=== PATIENT | female | born 1965 | race Caucasian/White ===

== ENCOUNTER 2016-12-18 11:30 | Emergency (ER) | payer OTHER ==
[~2016-12-18] VITALS: Ht 157.5 cm; Wt 61.2 kg
[~2016-12-18 11:30] MED LIST: ALBU8.5H3 INH; DOCU-144 PO; HYDR25SU23 PR; OMEP20CA16 PO; POLY17PO6 PO; PRED20TA PO
[2016-12-18 11:35] VITALS: Ht 157.5 cm; Wt 61.2 kg
[2016-12-18] MEDS ORDERED: KETOROLAC 30 MG INJ IM STA (11:54)
--- NOTE | 2016-12-18 12:08 | ERD ---
ER Documentation Chief Complaint Date/Time DATE: 12/18/16 TIME: 12:02 Chief Complaint flu like symptoms x 3 days, body aches, cough,chills HPI 51 yo female comes in with cough, congestion runny nose, headache for 3 days. She reports a temperature maximum of 101.7 last night and has been taking guaifenesin, and codeine. Patient reports generalized body aches as well. She denies, chest pain, shortness breath, abdominal pain. Patient also reports that she has had some constipation and associated hemorrhoid pain. No blood in her stools. ROS All systems reviewed and are negative except as per history of present illness. Medications Home Meds Active Scripts Guaifenesin/Codeine Phosphate (CHERATUSSIN AC SYRUP) 118 Ml Liquid, 5 ML PO Q4H Y for COUGH, #118 ML Prov:NURY DOMINGUEZ PA-C 12/18/16 Azithromycin* (Zithromax*) 250 Mg Tablet, 250 MG PO .ZPACK DIRECTED, #6 TAB TAKE 500 MG (2 TABS) THE FIRST DAY THEN 250 MG (1 TAB) DAYS 2-5 Prov:NURY DOMINGUEZ PA-C 12/18/16 Albuterol Sulfate* (Proair HFA*) 8.5 Gm Hfa.aer.ad, 2 PUFF INH Q4, #1 INHALER Prov:NURY DOMINGUEZ PA-C 07/25/16 Prednisone* (Prednisone*) 20 Mg Tab, 40 MG PO DAILY for 4 Days, TAB Prov:NURY DOMINGUEZ PA-C 07/25/16 Omeprazole* (Omeprazole*) 20 Mg Capsule.dr, 20 MG PO DAILY, #30 Prov:EJ MENON NP 06/24/16 Polyethylene Glycol* (Miralax*) 17 Gm Powd.pack, 17 GM PO DAILY, #7 Prov:EJ MENON NP 06/24/16 Docusate Sodium* (Colace*) 100 Mg Capsule, 100 MG PO TID, #30 CAP Prov:EJ MENON NP 06/24/16 Hydrocortisone Acetate (Anusol-Hc) 25 Mg Supp.rect, 1 SUPP W[place] BID Y for HEMORROID PAIN/ITCHING, #24 SUPP.RECT Prov:EJ MENON NP 06/24/16 Allergies Allergies: Coded Allergies: No Known Allergy (Unverified , 11/28/13) PMhx/Soc History of Surgery: No Anesthesia Reaction: No Hx Neurological Disorder: No Hx Respiratory Disorders: No Hx Cardiac Disorders: No Hx Psychiatric Problems: No Hx Miscellaneous Medical Probl: Yes (Gastritis) Hx Alcohol Use: No Hx Substance Use: No Hx Tobacco Use: No Physical Exam Vitals Vital Signs Date Time Temp Pulse Resp B/P Pulse Ox O2 Delivery O2 Flow Rate FiO2 12/18/16 11:35 99.2 99 20 107/53 96 Physical Exam General: [Well-developed, well-nourished. The patient appears in no acute distress.] HEENT: [Head is normocephalic, atraumatic. No scleral icterus. Pupils are equal , round, and reactive. Oral mucous membranes are moist. No pharyngeal erythema. ] Neck: [Supple. Nontender.] Lungs: [Clear to auscultation. Normal air movement.] Heart: [Regular rate and rhythm. S1 and S2 are normal. No murmurs, gallops, or rubs.] Abdomen: [Soft, nontender, nondistended. Bowel sounds are normoactive.] Extremities: [No clubbing or cyanosis. Normal pulses. Moving extremities x 4. No weakness.] Neurologic: [Alert and oriented 3. No focal deficits.] Skin: [Normal turgor. No rash or lesions.] Results 24 hrs Current Medications Medications (Trade) Dose Ordered Sig/Angella Route PRN Reason Start Time Stop Time Status Last Admin Dose Admin Ketorolac Tromethamine (Toradol) 30 mg ONCE STAT IM 12/18/16 11:54 12/18/16 11:56 DC 12/18/16 12:26 PROCEDURE: XR Chest. CLINICAL INDICATION: Cough and fever. TECHNIQUE: Single frontal view. COMPARISON: None. FINDINGS: There is minimal left basilar atelectasis or pneumonia. The lungs are otherwise clear. The heart size is normal. There is no pleural effusion. There is no pneumothorax. IMPRESSION: 1. Minimal left basilar atelectasis or pneumonia. 2. Otherwise normal chest x-ray. RPTAT: QQ .Rik Mahoney MD, MD Date Time Electronically viewed and signed by .Rik Mahoney MD, on 12/18/2016 12:19 Procedures/MDM The patient is a 51-year-old female who comes in with acute bronchitis versus pneumonia. Chest x-ray was read as left basilar atelectasis versus infiltrate, secondary to history of fever and cough patient will be treated.. The patient has a differential diagnosis of a viral upper respiratory infection, bacterial upper respiratory infection, bronchitis, pneumonia, pharyngitis, laryngitis, epiglottitis, croup, pneumonia. Patient has a normal pulmonary examination, clear breath sounds, normal pulse oximetry, with no corrective measures needed at this time. Fluids, rest, antipyretics were encouraged. Departure Diagnosis: Primary Impression: Cough Condition: Good NURY DOMINGUEZ PA-C December 18, 2016 12:08
--- NOTE | 2016-12-18 12:19 | RADRPT ---
PROCEDURE: XR Chest. CLINICAL INDICATION: Cough and fever. TECHNIQUE: Single frontal view. COMPARISON: None. FINDINGS: There is minimal left basilar atelectasis or pneumonia. The lungs are otherwise clear. The heart size is normal. There is no pleural effusion. There is no pneumothorax. IMPRESSION: 1. Minimal left basilar atelectasis or pneumonia. 2. Otherwise normal chest x-ray. RPTAT: QQ .Rik Mahoney MD, MD Date Time Electronically viewed and signed by .Rik Mahoney MD, MD on 12/18/2016 12:19 .R/
[2016-12-18] MEDS ORDERED: AZIT250T94 PO (12:28)
[2016-12-18] MEDS ORDERED: GUAI118L22 PO (12:28)
== END 2016-12-18 13:01 | disposition home or self-care (01) ==
LOC: FTE 11:30
DX: R05 Cough (principal)
CPT/HCPCS: 71010; 96372; J1885; Z7502

== ENCOUNTER 2017-06-12 09:31 | Emergency (ER) | payer OTHER ==
[~2017-06-12] VITALS: Ht 167.6 cm; Wt 89.6 kg
[~2017-06-12 09:31] MED LIST changes: +AZIT250T94 PO; +GUAI118L22 PO
[2017-06-12 09:34] VITALS: Ht 167.6 cm; Wt 89.6 kg
[2017-06-12 10:11] LABS: BASOPHIL # 0.1 10^3/ul (0.0-0.1); BASOPHILS % 0.9 % (0.0-2.0); EOSINOPHILS # 0.2 10^3/ul (0.0-0.5); EOSINOPHILS % 3.1 % (0.0-7.0); HEMATOCRIT 44.1 % (37.0-47.0); HEMOGLOBIN 14.9 g/dl (12.0-16.0); LYMPHOCYTES # 1.7 10^3/ul (0.8-2.9); LYMPHOCYTES % 28.9 % (15.0-51.0); MEAN CORPUSCULAR HEMOGLOBIN 30.2 pg (29.0-33.0); MEAN CORPUSCULAR HGB CONC 33.8 g/dl (32.0-37.0); MEAN CORPUSCULAR VOLUME 89.5 fl (82.0-101.0); MEAN PLATELET VOLUME 10.3 fl (7.4-10.4); MONOCYTE # 0.3 10^3/ul (0.3-0.9); MONOCYTES % 5.3 % (0.0-11.0); NEUTROPHIL # 3.6 10^3/ul (1.6-7.5); NEUTROPHILS % 61.5 % (39.0-77.0); PLATELET COUNT 197 10^3/UL (140-415); RED BLOOD COUNT 4.93 10^6/ul (4.20-5.40); RED CELL DISTRIBUTION WIDTH 12.1 % (11.5-14.5); WHITE BLOOD COUNT 5.9 10^3/ul (4.8-10.8)
[2017-06-12 10:29] LABS: ALANINE AMINOTRANSFERASE 48 IU/L (13-69); ALBUMIN 4.4 g/dl (3.3-4.9); ALBUMIN/GLOBULIN RATIO 1.41; ALKALINE PHOSPHATASE 105 IU/L (42-121); ANION GAP 15 (8-16); ASPARTATE AMINO TRANSFERASE 26 IU/L (15-46); BILIRUBIN,INDIRECT 0.4 mg/dl (0-1.1); BILIRUBIN,TOTAL 0.4 mg/dl (0.2-1.3); BLOOD UREA NITROGEN 12 mg/dl (7-20); CALCIUM 9.2 mg/dl (8.4-10.2); CARBON DIOXIDE 27 mmol/L (21-31); CHLORIDE 107 mmol/L (97-110); CREATININE 0.72 mg/dl (0.44-1.00); GLUCOSE 82 mg/dl (70-220); SODIUM 145 mmol/L (135-144); TOTAL PROTEIN 7.5 g/dl (6.1-8.1)
[2017-06-12] MEDS ORDERED: IBUPROFEN 600 MG TAB PO ONE (10:30)
[2017-06-12 10:40] LABS: C-REACTIVE PROTEIN < 0.5 mg/dl (0.0-0.9)
--- NOTE | 2017-06-12 10:54 | RADRPT ---
PROCEDURE: XR Hand. CLINICAL INDICATION: left first digit pain TECHNIQUE: AP , oblique, and lateral views of the left hand were obtained. COMPARISON: No prior studies are available for comparison. FINDINGS: The bones of the hand appear intact, with no evidence of fracture, dislocation, or subluxation. The joint spaces are preserved. Bone mineralization is normal. No significant soft tissue swelling is se en. IMPRESSION: Unremarkable left hand. No abnormalities of the left thumb. Vicente Lee Physician Date Time Electronically viewed and signed by Vicente Lee Physician on 06/12/2017 10:54 ML/
[2017-06-12] MEDS ORDERED: LIDOCAINE 2% (MDV) 20 ML INJ INJ ONE (13:00)
[2017-06-12] MEDS ORDERED: DOXY100C PO (13:19)
[2017-06-12] MEDS ORDERED: IBUP-1542 PO (13:19)
[2017-06-12 13:34] VITALS: BP 132/82; PULSE 72; RESP 19; TEMP 98.4
--- NOTE | 2017-06-12 14:01 | ERD ---
ER Documentation Chief Complaint Chief Complaint Complains of left finger pain x3 days HPI This is a 51-year-old female presents to the ER with left first digit pain that started about 3 days ago. Patient got a manicure, and since then she developed yellow pus under her fingernail. Patient states the pain is severe and constant it radiates through her finger into her arm and epidural shoulder. She denies any trauma. Denies any fevers or chills. Numbness or tingling to her finger. ROS 12 point review of systems was done, all negative except per HPI. Medications Home Meds Active Scripts Ibuprofen* (Motrin*) 600 Mg Tab, 600 MG PO Q6, #30 TAB Prov:RADHA LEONE 06/12/17 Doxycycline* (Vibramycin*) 100 Mg Capsule, 100 MG PO BID for 7 Days, EA Prov:RADHA LEONE 06/12/17 Guaifenesin/Codeine Phosphate (CHERATUSSIN AC SYRUP) 118 Ml Liquid, 5 ML PO Q4H Y for COUGH, #118 ML Prov:NURY DOMINGUEZ PA-C 12/18/16 Azithromycin* (Zithromax*) 250 Mg Tablet, 250 MG PO .ZPACK DIRECTED, #6 TAB TAKE 500 MG (2 TABS) THE FIRST DAY THEN 250 MG (1 TAB) DAYS 2-5 Prov:NURY DOMINGUEZ PA-C 12/18/16 Albuterol Sulfate* (Proair HFA*) 8.5 Gm Hfa.aer.ad, 2 PUFF INH Q4, #1 INHALER Prov:NURY DOMINGUEZ PA-C 07/25/16 Prednisone* (Prednisone*) 20 Mg Tab, 40 MG PO DAILY for 4 Days, TAB Prov:NURY DOMINGUEZ PA-C 07/25/16 Omeprazole* (Omeprazole*) 20 Mg Capsule.dr, 20 MG PO DAILY, #30 Prov:EJ MENON NP 06/24/16 Polyethylene Glycol* (Miralax*) 17 Gm Powd.pack, 17 GM PO DAILY, #7 Prov:EJ MENON NP 06/24/16 Docusate Sodium* (Colace*) 100 Mg Capsule, 100 MG PO TID, #30 CAP Prov:EJ MENON NP 06/24/16 Hydrocortisone Acetate (Anusol-Hc) 25 Mg Supp.rect, 1 SUPP [place] BID Y for HEMORROID PAIN/ITCHING, #24 SUPP.RECT Prov:EJ MENON NP 06/24/16 Allergies Allergies: Coded Allergies: No Known Allergy (Unverified , 06/12/17) PMhx/Soc Medical and Surgical Hx: pt denies Surgical Hx History of Surgery: No Anesthesia Reaction: No Hx Neurological Disorder: No Hx Respiratory Disorders: No Hx Cardiac Disorders: No Hx Psychiatric Problems: No Hx Miscellaneous Medical Probl: Yes (Gastritis) Hx Alcohol Use: No Hx Substance Use: No Hx Tobacco Use: No Smoking Status: Never smoker Physical Exam Vitals Vital Signs Date Time Temp Pulse Resp B/P Pulse Ox O2 Delivery O2 Flow Rate FiO2 06/12/17 13:34 98.4 72 19 132/82 Room Air 06/12/17 09:34 98.7 89 20 124/76 98 Physical Exam GENERAL: The patient is well developed and appropriate for usual state of health , in no apparent distress. HEENT: Atraumatic. CHEST: Clear to auscultation bilaterally. There are no rales, wheezes or rhonchi. HEART: Regular rate and rhythm. No murmurs, clicks, rubs or gallops. ABDOMEN: Soft, nontender and nondistended. Good bowel sounds. No rebound or guarding. No gross peritonitis. No gross organomegaly or masses. No Ruiz sign or McBurney point tenderness. BACK: No midline or flank tenderness. EXTREMITIES: left first digit: patient has pus under the nailbed. there is surrounding erythema and ttp. ROM is difficult to assess as patient is in pain. there is no fullness to the volar distal tip of the finger. DTS and DTP are intact. NEURO: Alert and oriented. SKIN: There is no apparent rash or petechia. The skin is warm and dry. Result Diagram: 06/12/17 1000 06/12/17 1000 Results 24 hrs Laboratory Tests Test 06/12/17 10:00 White Blood Count 5.910^3/ul Red Blood Count 4.9310^6/ul Hemoglobin 14.9g/dl Hematocrit 44.1% Mean Corpuscular Volume 89.5fl Mean Corpuscular Hemoglobin 30.2pg Mean Corpuscular Hemoglobin Concent 33.8g/dl Red Cell Distribution Width 12.1% Platelet Count 01491^3/UL Mean Platelet Volume 10.3fl Neutrophils % 61.5% Lymphocytes % 28.9% Monocytes % 5.3% Eosinophils % 3.1% Basophils % 0.9% Nucleated Red Blood Cells % 0.0/100WBC Neutrophils # 3.610^3/ul Lymphocytes # 1.710^3/ul Monocytes # 0.310^3/ul Eosinophils # 0.210^3/ul Basophils # 0.110^3/ul Nucleated Red Blood Cells # 0.010^3/ul Erythrocyte Sedimentation Rate 16mm/Hr Sodium Level 145mmol/L Potassium Level 4.0mmol/L Chloride Level 107mmol/L Carbon Dioxide Level 27mmol/L Anion Gap 15 Blood Urea Nitrogen 12mg/dl Creatinine 0.72mg/dl Glucose Level 82mg/dl Calcium Level 9.2mg/dl Total Bilirubin 0.4mg/dl Direct Bilirubin 0.00mg/dl Indirect Bilirubin 0.4mg/dl Aspartate Amino Transf (AST/SGOT) 26IU/L Alanine Aminotransferase (ALT/SGPT) 48IU/L Alkaline Phosphatase 105IU/L C-Reactive Protein < 0.5mg/dl Total Protein 7.5g/dl Albumin 4.4g/dl Globulin 3.10g/dl Albumin/Globulin Ratio 1.41 Current Medications Medications (Trade) Dose Ordered Sig/Angella Route PRN Reason Start Time Stop Time Status Last Admin Dose Admin Ibuprofen (Motrin) 600 mg ONCE ONCE PO 06/12/17 10:30 06/12/17 10:31 DC 06/12/17 10:26 Lidocaine (Xylocaine 2% (Mdv) 20 ml) 20 ml ONCE ONCE INJ 06/12/17 13:00 06/12/17 13:01 DC Procedures/MDM This patient was examined by myself and by Dr. Palacio, patient does have a superficial paronychia, which should be drained. Abscess Incision and Drainage with irrigation by me: Location: left 1st digit Anesthesia: 2% lidocaine- digital block done Technique: green-yellow pus was expressed Packin/4 inch iodoform gauze Complications: Neurovascularly intact post procedure 48 hour wound check. Scar minimization instructions given. Patient's skin symptoms have stabilized while they have been evaluated in the department and are appropriate for outpatient care and work up. Will be sent home with doxycycline. Patient's white blood cell count was normal, there is no evidence of ESR or CRP elevation, suspicion for septic joint is low. Exam and w/u not consistent w/ sepsis, deep space infection, or foreign body. Departure Diagnosis: Primary Impression: Paronychia Condition: Stable Patient Instructions: Paronychia Additional Instructions: Return to this facility in 2 DAYS for a follow-up exam.Return sooner if your condition worsens. RADHA LEONE Jun 12, 2017 14:00
== END 2017-06-12 13:35 | disposition home or self-care (01) ==
LOC: FTE 09:31
DX: L03.012 Cellulitis of left finger (principal)
CPT/HCPCS: 10060; 73130; 80053; 85025; 85651; 86140; Z7502; Z7610

== ENCOUNTER 2017-06-14 07:50 | Emergency (ER) | payer OTHER ==
[~2017-06-14] VITALS: Ht 157.5 cm; Wt 56.0 kg
[~2017-06-14 07:50] MED LIST changes: +DOXY100C PO; +IBUP-1542 PO
[2017-06-14 07:56] VITALS: Ht 157.5 cm; Wt 56.0 kg
--- NOTE | 2017-06-14 08:18 | ERD ---
ER Documentation Chief Complaint Chief Complaint for recheck on lt thumb infected nail HPI This is a 51-year-old female presents to the ER for recheck of her left thumb after I&D for paronychia 2 days ago. Patient states that she does not have any more pain she feels significantly better. She has not had any fevers or chills. She does not have any numbness or tingling of her finger and can move her finger without any problems. ROS 12 point review of systems was done, all negative except per HPI.. Medications Home Meds Active Scripts Ibuprofen* (Motrin*) 600 Mg Tab, 600 MG PO Q6, #30 TAB Prov:RADHA LEONE 06/12/17 Doxycycline* (Vibramycin*) 100 Mg Capsule, 100 MG PO BID for 7 Days, EA Prov:RADHA LEONE 06/12/17 Guaifenesin/Codeine Phosphate (CHERATUSSIN AC SYRUP) 118 Ml Liquid, 5 ML PO Q4H Y for COUGH, #118 ML Prov:NURY DOMINGUEZ PA-C 12/18/16 Azithromycin* (Zithromax*) 250 Mg Tablet, 250 MG PO .ZPACK DIRECTED, #6 TAB TAKE 500 MG (2 TABS) THE FIRST DAY THEN 250 MG (1 TAB) DAYS 2-5 Prov:NURY DOMINGUEZ PA-C 12/18/16 Albuterol Sulfate* (Proair HFA*) 8.5 Gm Hfa.aer.ad, 2 PUFF INH Q4, #1 INHALER Prov:NURY DOMINGUEZ PA-C 07/25/16 Prednisone* (Prednisone*) 20 Mg Tab, 40 MG PO DAILY for 4 Days, TAB Prov:NURY DOMINGUEZ PA-C 07/25/16 Omeprazole* (Omeprazole*) 20 Mg Capsule.dr, 20 MG PO DAILY, #30 Prov:EJ MENON NP 06/24/16 Polyethylene Glycol* (Miralax*) 17 Gm Powd.pack, 17 GM PO DAILY, #7 Prov:EJ MENON NP 06/24/16 Docusate Sodium* (Colace*) 100 Mg Capsule, 100 MG PO TID, #30 CAP Prov:EJ MENON NP 06/24/16 Hydrocortisone Acetate (Anusol-Hc) 25 Mg Supp.rect, 1 SUPP DE BID Y for HEMORROID PAIN/ITCHING, #24 SUPP.RECT Prov:EJ MENON NP 06/24/16 Allergies Allergies: Coded Allergies: No Known Allergy (Unverified , 06/12/17) PMhx/Soc History of Surgery: No Anesthesia Reaction: No Hx Neurological Disorder: No Hx Respiratory Disorders: No Hx Cardiac Disorders: No Hx Psychiatric Problems: No Hx Miscellaneous Medical Probl: Yes (Gastritis) Hx Alcohol Use: No Hx Substance Use: No Hx Tobacco Use: No Physical Exam Vitals Vital Signs Date Time Temp Pulse Resp B/P Pulse Ox O2 Delivery O2 Flow Rate FiO2 06/14/17 07:56 98.2 66 18 123/60 98 Physical Exam GENERAL: The patient is well developed and appropriate for usual state of health , in no apparent distress. HEENT: Atraumatic. CHEST: Clear to auscultation bilaterally. There are no rales, wheezes or rhonchi. HEART: Regular rate and rhythm. No murmurs, clicks, rubs or gallops. EXTREMITIES: patient has iodoform in place where I&D was done, there is no erythema, swelling or discharge from the area. it is no longer TTP NEURO: Alert and oriented. Procedures/MDM This is a 51-year-old female presents to the ER for recheck, her finger appears much better she has not had any pain and does not have any fevers or chills. Able for outpatient follow-up she should continue with her antibiotics until they are finished. She is to follow-up with her primary care doctor within 1-2 days return to ER sooner if symptoms worsen. My medical decision making sure with the patient understands and agrees with plan. Departure Diagnosis: Primary Impression: Abscess re-check Condition: Stable RADHA LEONE Jun 14, 2017 08:18
== END 2017-06-14 08:34 | disposition home or self-care (01) ==
LOC: FTE 07:50
DX: Z48.01 Encounter for change or removal of surgical wound dressing (principal)
CPT/HCPCS: 99281

== ENCOUNTER 2017-09-18 10:44 | Emergency (ER) | END 2017-09-18 11:51 | disposition home or self-care (01) ==

== ENCOUNTER 2017-10-30 08:41 | Emergency (ER) | END 2017-10-30 10:03 | disposition home or self-care (01) ==